=== PATIENT | male | born 1990 ===

== ENCOUNTER 2018-01-18 18:41 | Emergency (ER) | payer OTHER ==
[2018-01-18 18:55] VITALS: BP 108/68
--- NOTE | 2018-01-18 18:59 | UC ---
Skin Complaint HPI - HPI Summary HPI Summary: 27 yo male presents with right pinky pain, redness, and swelling s/p splinter he sustained about 5 days ago. He was able to remove the splinter 3 days ago when it worked out through the skin surface enough to pull. Now has pain, swelling, and redness at the nail/skin fold of his pinky where the splinter was. Denies fever, chills. - History of Current Complaint Chief Complaint: UCSkin Time Seen by Provider: 01/18/18 18:58 Stated Complaint: FINGER INJURY Hx Obtained From: Patient Onset/Duration: Gradual Onset Onset Severity: Mild Current Severity: Mild Pain Intensity: 3 - Allergy/Home Medications Allergies/Adverse Reactions: Allergies Allergy/AdvReac Type Severity Reaction Status Date / Time No Known Allergies Allergy Verified 01/18/18 18:55 Home Medications: Home Medications Acetaminophen TAB* [Tylenol TAB*] 01/18/18 [History] Mupirocin 2% OINT* [Bactroban 2 % Oint*] 1 applic TOPICAL TID 01/18/18 [History Confirmed 01/18/18] Review of Systems Constitutional: Negative Skin: Other - Pain and redness right pinky Respiratory: Negative Cardiovascular: Negative Neurovascular: Negative Neurological: Negative Psychological: Negative All Other Systems Reviewed And Are Negative: Yes PMH/Surg Hx/FS Hx/Imm Hx - Additional Past Medical History Additional PMH: Ulcerative colitis - Surgical History Surgical History: Yes Surgery Procedure, Year, and Place: RIGHT SHOULDER, BILAT HERNIA AT , TONSILLECTOMY - Family History Known Family History: Positive: None - Social History Lives: With Family Alcohol Use: Occasionally Substance Use Type: None Smoking Status (MU): Never Smoked Tobacco Physical Exam - Summary Physical Exam Summary: GENERAL: NAD. WDWN. No pain distress. SKIN: Right pinky: At the ulnar aspect of the nail/skin fold there is mild erythema, tenderness, and edema. No streaking, bleeding, or drainage. NECK: Supple. Nontender. No lymphadenopathy. CHEST: No accessory muscle use. Breathing comfortably and in no distress. CV: RRR. Without m/r/g. NEURO: Alert. CN II-XII grossly intact. PSYCH: Age appropriate behavior. Triage Information Reviewed: Yes Vital Signs: Initial Vital Signs Temp 98.5 F 01/18/18 18:50 Pulse 85 01/18/18 18:50 Resp 16 01/18/18 18:50 BP 108/68 01/18/18 18:50 Pulse Ox 99 01/18/18 18:50 Course/Dx - Course Course Of Treatment: A time out was performed, witnessed, and signed. The area was cleansed with alcohol pad. A 22G needle was used to arely the right pinky nail/skin fold. Scant purulent matter was able to be expressed. Pt tolerated well. He also tells me that he is new to the area and has yet to establish with a GI doctor for his UC - he is asking for a refill on his Mesalamine until he can see GI. - Diagnoses Provider Diagnoses: Paronychia right pinky. Ulcerative colitis Discharge - Sign-Out/Discharge Documenting (check all that apply): Discharge/Admit/Transfer - Discharge Plan Condition: Stable Disposition: HOME Prescriptions: Cephalexin CAP* [Keflex CAP*] 500 mg PO BID #14 cap Mesalamine [Apriso] 1.5 mg PO DAILY #120 cap.er.24h Patient Education Materials: Paronychia (ED) Referrals: No Primary Care Phys,NOPCP [Primary Care Provider] - Simon Clark MD [Medical Doctor] - As Soon As Possible Additional Instructions: If you develop a fever, shortness of breath, chest pain, new or worsening symptoms - please call your PCP or go to the ED. 1) Please call Dr. Clark at the number below to schedule an appointment for your ulcerative colitis - Billing Disposition and Condition Condition: STABLE Disposition: Home
== END 2018-01-18 19:15 | disposition home or self-care (01) ==
LOC: UCEAST 18:41
DX: L03.011 Cellulitis of right finger (principal); K51.90 Ulcerative colitis, unspecified, without complications
CPT/HCPCS: 99202; G0463